=== PATIENT | male | born 1990 | race Caucasian/White ===

== ENCOUNTER 2019-10-13 07:00 | Outpatient (CLI) | payer BC | END 2019-10-13 23:59 | disposition home or self-care (01) | LOC: LAB.R 07:00 | PROVIDERS: ATTEND Emergency Medicine | DX: R19.7 Diarrhea, unspecified (principal) | CPT/HCPCS: 0097U; 81599 ==

== ENCOUNTER 2022-02-16 20:25 | Emergency (ER) | payer BC ==
[2022-02-16 20:34] VITALS: BP 166/95
[2022-02-16] MEDS ORDERED: KETOROLAC 30 MG/ML VIAL IM STA (20:42)
[2022-02-16] MEDS ORDERED: oxyCODONE/ACET 5/325 Prepack 4 PO STA (20:42)
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
== END 2022-02-16 20:51 | disposition home or self-care (01) ==
LOC: ED 20:25
DX: K08.89 Other specified disorders of teeth and supporting structures (principal)
CPT/HCPCS: 96372; 99281; 99283